=== PATIENT | female | born 1970 | race American Indian/Alaskan Native ===

== ENCOUNTER 2017-07-23 06:12 | Observation (INO) | payer MEDICAID ==
[2017-07-21 12:30] LABS: Basophils % (Auto) 0.6 % (0.0-1.8); Eosinophils # (Auto) 0.1 K/mm3 (0.0-0.4); Eosinophils % (Auto) 1.6 % (0.0-4.3); Hematocrit 30.8 % (30.3-42.9); Hemoglobin 9.5 gm/dl (10.1-14.3); Lymphocytes # (Auto) 2.7 K/mm3 (1.2-5.4); Lymphocytes % (Auto) 38.1 % (13.4-35.0); Mean Corpuscular HGB Conc 31 % (30-34); Monocytes # (Auto) 0.6 K/mm3 (0.0-0.8); Monocytes % (Auto) 8.6 % (0.0-7.3); Platelet Count 341 K/mm3 (140-440); Red Blood Count 4.72 M/mm3 (3.65-5.03); Red Cell Distribution Width 19.5 % (13.2-15.2)
[2017-07-21 12:31] LABS: Mean Corpuscular Hemoglobin 20 pg (28-32); Mean Corpuscular Volume 65 fl (79-97)
[2017-07-21 12:48] LABS: BUN/Creatinine Ratio 16; Blood Urea Nitrogen 13 mg/dL (7-17); Calcium 8.5 mg/dL (8.4-10.2); Hemolysis Index 0
--- NOTE | 2017-07-21 13:06 | Anesthesia Consultation ---
Anesthesia Consult and Med Hx Date of service: 07/21/17 - Pulmonary Hx Smoking: No Hx Asthma: No SOB: No COPD: No - Cardiovascular System Hx Hypertension: Yes (bisprolol/hct, amlodipine - plan to dose betablocker the day of surgery) Hx Percutaneous Transluminal Coronary Angioplasty (PTCA): No Hx Cardia Arrhythmia: No - Central Nervous System Hx Back Pain: No Hx Psychiatric Problems: No - Gastrointestinal Hx Gastroesophageal Reflux Disease: Yes (rare occasion - Tums resolves) - Endocrine Hx Renal Disease: No Hx Cirrhosis: No Hx Liver Disease: No Hx Insulin Dependent Diabetes: No Hx Thyroid Disease: No - Other Systems Hx Alcohol Use: Yes (a glass of wine 3 times per week) Hx Substance Use: No Hx Cancer: No Hx Obesity: No - Additional Comments Anesthesia Medical History Comments: GETA for . Last 15 years ago without complication
--- NOTE | 2017-07-22 16:58 | History and Physical Report ---
History of Present Illness Date of examination: 07/22/17 Date of admission: 07/23/2017 Chief complaint: dysfunctional bleeding History of present illness: 46y/o with symptomatic uterine fibroids and abnormal bleeding. The patient reports having pelvic pain and discomfort. Her ultrasound reveals evidence of an enlarged fibroid uterus with a dominant myoma measuring 8.3cm. Treatment options have been discussed with the patient. She elects for definitive surgical management. Past History Past Medical History: hypertension Past Surgical History: section [employer] History: fibroids Social history: single - Obstetrical History : 3 Para: 2 Hx # Term Pregnancies: 2 Number of Pregnancies: 0 Spontaneous Abortions: 0 Induced : 1 Number of Living Children: 2 Medications and Allergies Allergies Allergy/AdvReac Type Severity Reaction Status Date / Time No Known Allergies Allergy Unverified 07/17/17 17:28 Home Medications Medication Instructions Recorded Confirmed Last Taken Type Bisoprolol/Hydrochlorothiazide 1 each PO DAILY 07/17/17 07/17/17 Unknown History [Bisoprolol-Hctz 10-6.25 mg Tab] Hydrocodone Bitartrate [Zohydro ER] 10 mg PO PRN PRN 07/17/17 07/17/17 Unknown History amLODIPine [Norvasc] 5 mg PO DAILY 07/17/17 07/17/17 Unknown History Active Meds: Active Medications Sodium Chloride (Nacl 0.9% 1000 Ml) 1,000 mls @ 42 mls/hr IV DIRECT CARLEE Review of Systems All systems: negative Genitourinary: vaginal bleeding, pelvic pain - Vital Signs Vital signs: Vital Signs Temp Pulse Resp BP 98.8 F 60 16 120/80 07/21/17 12:10 07/21/17 12:10 07/21/17 12:10 07/21/17 12:10 Temp Pulse Resp BP Pulse Ox 98.8 F 60 16 120/80 07/21/17 12:10 07/21/17 12:10 07/21/17 12:10 07/21/17 12:10 - Physical Exam Breasts: Positive: deferred Cardiovascular: Regular rate Lungs: Positive: Clear to auscultation Abdomen: Positive: soft Uterus: Positive: enlarged Results Result Diagrams: 07/21/17 12:15 07/21/17 12:15 All other labs normal. Assessment and Plan - Patient Problems (1) Leiomyoma Status: Acute Plan to address problem: scheduled for a robotic hysterectomy (2) Dysfunctional uterine bleeding Status: Acute (3) Pelvic pain Status: Acute
[~2017-07-23 06:12] MED LIST: ANCEF/STERILE WATER 2 GM/20 ML 2 GM/20 ML SYRINGE IV SCH; DECADRON IV NR; NACL 0.9% 1000 ML 1,000 ML IV SCH; NEURONTIN PO NR; VERSED IV NR
[2017-07-23] MEDS ORDERED: NACL BACTERIOSTATIC INFILTRATI ONE (06:26)
[2017-07-23] MEDS ORDERED: VERSED IV NR (07:00)
[2017-07-23] MEDS ORDERED: NEURONTIN PO NR (07:00)
[2017-07-23] MEDS ORDERED: DECADRON IV NR (07:00)
[2017-07-23] MEDS ORDERED: GELFOAM POWDER 1GM MM ONE ×2 (07:16→09:30)
[2017-07-23] MEDS ORDERED: MARCAINE 0.5% 0 ML INFILTRATI ONE (07:16)
[2017-07-23] MEDS ORDERED: THROMBIN (BOVINE) TP ONE ×2 (07:17→09:30)
[2017-07-23] MEDS ORDERED: METHYLENE BLUE ONE (07:17)
[2017-07-23] MEDS ORDERED: NEOSPORIN GU IR ONE ×2 (07:17→09:13)
[2017-07-23] MEDS ORDERED: SUBLIMAZE IV NR (07:22)
[2017-07-23] MEDS ORDERED: DIPRIVAN 10 MG/ML IV ONE (07:29)
[2017-07-23] MEDS ORDERED: ZEMURON IV ONE (07:29)
[2017-07-23] MEDS ORDERED: XYLOCAINE MPF 2% ONE (07:29)
[2017-07-23] MEDS ORDERED: DILAUDID ONE (07:30)
[2017-07-23] MEDS ORDERED: MARCAINE 0.5% INFILTRATI ONE (07:41)
[2017-07-23] MEDS ORDERED: MARCAINE 0.5% 30 ML INFILTRATI ONE (07:42)
[2017-07-23] MEDS ORDERED: ePHEDrine SULFATE ONE (08:37)
[2017-07-23] MEDS ORDERED: NACL 0.9% IR ONE ×2 (09:12)
[2017-07-23] MEDS ORDERED: NACL 0.9% 1000 ML 1,000 ML ONE (09:17)
[2017-07-23] MEDS ORDERED: DECADRON ONE (09:19)
[2017-07-23] MEDS ORDERED: ZOFRAN ONE (09:19)
[2017-07-23] MEDS ORDERED: DILAUDID IV PRN (09:24)
[2017-07-23] MEDS ORDERED: ROBINUL ONE (09:50)
[2017-07-23] MEDS ORDERED: NEOSTIGMINE ONE (09:51)
[2017-07-23] MEDS ORDERED: NARCAN 0.4 MG/1 ML IV PRN (09:58)
--- NOTE | 2017-07-23 09:58 | Operative Report ---
Operative Report Operative Report: Date of surgery: 07/23/2017 Preoperative diagnoses: Symptomatic uterine fibroids; dysfunctional uterine bleeding; dysmenorrhea Postoperative diagnoses: Same as above Procedure: Robotic hysterectomy and bilateral salpingo-oophorectomy; lysis of adhesions Surgeon: Leslie Clark M.D. Slurry Worker: Tracy Burgos Anesthesia: Gen. endotracheal anesthesia Estimated blood loss: 50 mL Pathology: Uterus, cervix, fibroids, bilateral tubes and ovaries Indication:default value Procedure: The patient was taken to the operating room and given general endotracheal anesthesia without complication. She is prepped and draped in a normal sterile fashion. A bivalve speculum was placed in the patient's vagina and a single- tooth tenaculum placed on the anterior lip of the cervix. The uterus was sounded with the uterine sound. A [employer] uterine manipulator was placed in the bivalve speculum was then removed. Attention was then turned to the patient's abdomen where a 12 millimeter supra umbilical skin incision was then made. A Veress needle was placed and peritoneal entry was verified water-filled syringe. Insufflation of the peritoneal cavity was performed with CO2 gas. The 12 mm trocar was then placed under direct visualization. An additional 8 mm trocar was placed on the patient's left and right lateral side just opposite of the supraumbilical trocar. An additional 5 mm right lateral trocar was then placed as the accessory port. The Ollie Rawls device was used to close the fascia of the 12 mm incision. The patient was then placed in steep Trendelenburg. The da John robot was then engaged. A fenestrated forcep was placed in arm 2 and a vessel sealer was placed in arm 1. The surgeon then transferred to the surgical console. General survey of the patient's abdomen and pelvis revealed evidence of an omental adhesion to the anterior abdominal wall. The monopolar scissors were used to lyse the adhesions to improve visualization. The survey also included findings of an enlarged fibroid uterus. There was evidence of a pedunculated fibroid on the right lateral side of the uterus. The uterus contained multiple fibroids and a large left ovary. The infundibulopelvic ligament was then isolated on the right. The vessel sealer was used to coagulate the ligament which was then transected. The tube and ovary were transected from the supply. The round ligament was then coagulated and transected also. The vesicouterine peritoneum was then entered from the patient's right side. The uterine vessels were then coagulated with the vessel sealer. The vessels were then transected . Attention was then turned to the patient's left side where the infundibulopelvic ligament and mesosalpinx were again isolated coagulated and transected. The vesical peritoneum was then entered from the left and joined in the midline. Peritoneum was reflected off of the lower uterine segment. Uterine vessels were then coagulated and then transected. The blood supply to the uterus was adequately contained. A myomectomy had to be performed in order to decompress the enlarged uterus. The uterus was also bivalved. A posterior colpotomy was made. The V care ring was visualized. Posterior colpotomy was created with the monopolar scissors. The incision was continued circumferentially until anterior colpotomy was made. The cervix and uterus were amputated from the vaginal cuff. The uterus was then removed along with the fibroids, tubes and ovaries bilaterally through the vagina and a warm laparotomy sponge was placed and maintain the pneumoperitoneum. The vaginal cuff was then closed in a running fashion with V lock suture. Irrigation of the pelvis was performed. Gelfoam with thrombin was applied to the incision. The skin was then reapproximated with 4-0 Monocryl. The tissue was sent to pathology which included the cervix, uterus, tubes and ovaries. The patient was then successfully extubated. She was then taken to the recovery room in stable condition. All sponge laps and needle counts were correct x2.
[2017-07-23] MEDS ORDERED: MOTRIN PO PRN (09:59)
[2017-07-23] MEDS ORDERED: MILK OF MAGNESIA PO PRN (09:59)
[2017-07-23] MEDS ORDERED: TYLENOL PO PRN (09:59)
[2017-07-23] MEDS ORDERED: ZOFRAN IV PRN (09:59)
[2017-07-23] MEDS ORDERED: PERCOCET 5/325 PO PRN (09:59)
[2017-07-23] MEDS ORDERED: MORPHINE PCA 30MG/30ML IV SCH (10:00)
--- NOTE | 2017-07-23 11:13 | Post Anesthesia Evaluation ---
- Post Anesthesia Evaluation Patient Participated: Yes Airway Patent: Yes Stable Respiratory Function: Yes Nausea/Vomiting: No Temp > 96.8F: Yes Pain Manageable: Yes Adequeate Hydration: Yes Anesthesia Complications: No
[2017-07-23] MEDS: TORADOL IV SCH ×2 (12:05→17:51)
[2017-07-23] MEDS: D5LR 1,000 ML IV SCH ×2 (12:06→19:22)
[2017-07-24] MEDS: TORADOL IV SCH ×2 (00:40→06:18)
[2017-07-24 03:21] LABS: Hemoglobin 7.4 gm/dl (10.1-14.3)
--- NOTE | 2017-07-24 08:27 | Progress Note ---
Assessment and Plan - Patient Problems (1) Leiomyoma Current Visit: Yes Status: Acute Plan to address problem: patient doing well discharge home (2) Dysfunctional uterine bleeding Current Visit: Yes Status: Acute (3) Pelvic pain Current Visit: Yes Status: Acute Subjective - Subjective Date of service: 07/24/17 Interval history: Patient without complaints. Tolerating diet. Pain well controlled. Has not voided yet. Encouraged patient to ambulate Patient reports: appetite normal, pain well controlled Objective - Vital Signs Latest vital signs: Vital Signs Temp Pulse Resp BP BP Pulse Ox 07/24/17 04:00 98.7 F 78 18 117/79 07/24/17 00:00 98.7 F 66 18 114/71 07/23/17 19:30 98.6 F 81 16 108/78 07/23/17 14:30 20 07/23/17 11:30 97.9 F 74 16 134/82 98 07/23/17 11:15 97.7 F 75 16 130/78 99 07/23/17 11:10 97.9 F 74 16 134/82 07/23/17 11:00 75 15 135/81 99 07/23/17 10:45 74 15 135/81 100 07/23/17 10:30 68 14 126/76 100 07/23/17 10:25 73 14 127/80 98 07/23/17 10:20 64 14 117/73 99 07/23/17 10:16 97.0 F L 65 10 L 127/75 92 Intake and Output 07/23/17 07/24/17 07/24/17 22:59 06:59 14:59 Intake Total 908.333 300 Output Total 1600 2300 Balance -691.667 -2000 Intake: IV 908.333 D5lr 1,000 ml @ 125 mls/ 908.333 hr IV DIRECT CARLEE Rx#: [id number] Intake, Free Water 300 Output: Urine 1600 2300 Indwelling Catheter 1600 2300 Other: Total, Output Amount 900 700 Voiding Method Toilet - Exam Lungs: Present: Clear to auscultation Abdomen: Present: normal appearance - Labs Labs: Abnormal lab results 07/24/17 Range/Units 02:39 Hgb 7.4 L (10.1-14.3) gm/dl Hct 24.0 L D (30.3-42.9) %
--- NOTE | 2017-07-24 08:28 | Discharge Summary ---
Providers - Providers Date of Admission: 07/23/17 10:00 Date of discharge: 07/24/17 Attending physician: YVETTE MILLER Primary care physician: RAÚL PARDO Hospitalization Reason for admission: other (uterine fibroids) Procedure: other (robotic hysterectomy and BSO) Discharge diagnosis: other (Symptomatic fibroids) Hospital course: Patient was admitted the day of surgery and underwent a robotic hysterectomy/ BSO. See op note. Postop uncomplicated Condition at discharge: Good Disposition: [id number] TO HOME OR SELFCARE - Discharge Diagnoses (1) Leiomyoma Status: Acute (2) Dysfunctional uterine bleeding Status: Acute (3) Pelvic pain Status: Acute Plan - Discharge Medications Prescriptions: Docusate Sodium [Colace] 100 mg PO BID PRN #60 capsule PRN Reason: Constipation Ferrous Sulfate [Feosol] 325 mg PO QDAY #30 tablet Ibuprofen [Motrin] 800 mg PO Q8HR PRN #60 tablet PRN Reason: Pain Oxycodone HCl/Acetaminophen [Percocet 7.5/325 mg] 1 each PO Q6HR PRN #45 tablet PRN Reason: Pain - Provider Discharge Summary Activity: no sex for 6 weeks, no heavy lifting 4 weeks, no strenuous exercise Diet: routine Instructions: routine Additional instructions: [] Smoking cessation referral if applicable(refer to patient education folder for contact #) [] Refer to [facility] Booklet Call your doctor immediately for: * Fever > 100.5 * Heavy vaginal bleeding ( >1 pad per hour) * Severe persistent headache * Shortness of breath * Reddened, hot, painful area to leg or breast * Drainage or odor from incision. * Keep incision clean and dry at all times and follow doctor's instructions regarding bathing/showering followup in [address] Allen - Follow up plan
[2017-07-24 12:52] VITALS: BP 106/74
== END 2017-07-24 13:30 | disposition home or self-care (01) ==
LOC: OR 06:12 → OB 10:00
PROVIDERS: ADMIT Obstetrics & Gynecology; ATTEND Obstetrics & Gynecology
DX: D25.9 Leiomyoma of uterus, unspecified (principal); N94.6 Dysmenorrhea, unspecified; N93.9 Abnormal uterine and vaginal bleeding, unspecified; I10 Essential (primary) hypertension; R10.2 Pelvic and perineal pain; K21.9 Gastro-esophageal reflux disease without esophagitis
CPT/HCPCS: 36415; 58554; 64450; 80048; 84703; 85014; 85018; 85025; 86850; 86900; 86901; 88307; 96374; 96375; 96376; A4217; A4649; G0378; J0690; J1100; J1170; J1885; J2250; J2270; J2405; J2704; J2710; J3010; J7030; J7121; S2900; Q9968